=== PATIENT | male | born 1960 | race African-American/Black ===

== ENCOUNTER 2024-07-10 23:21 | Observation (INO) | payer OTHER ==
[2024-07-11] MEDS ORDERED: CEFTRIAXONE 2 GM-D5W BAG 2 GM/50 ML BAG IVPB ONE (00:16)
[2024-07-11 00:26] LABS: ABSOLUTE IMMATURE GRANULOCYTES 0.05 x10^3/uL (0.0-0.031); BASOPHILS # 0.05 x10^3/uL (0.01-0.08); EOSINOPHIL % 0.8 % (0.8-7.0); EOSINOPHILS # 0.09 x10^3/uL (0.04-0.54); HEMOGLOBIN 11.7 g/dL (13.7-17.5); MCHC 31.6 g/dl (32.3-36.5); MEAN CELL VOLUME 94.9 fl (79.0-92.2); MEAN PLT VOLUME 10.5 fl (9.4-12.4); MONOCYTE # 1.47 x10^3/uL (0.30-0.82); MONOCYTE % 12.6 % (5.3-12.2); PLATELET COUNT 286 x10^3/uL (163-337); RDW 11.2 % (12.2-16.4)
[2024-07-11] MEDS: CEFTRIAXONE 2 GM-D5W BAG 2 GM/50 ML BAG IVPB ONE (00:27)
[2024-07-11 00:29] LABS: EPI CELLS 33 /uL (0-25.1); HYALINE CASTS 504 /uL (0-3.1); PH,URINE 5.5 (5.0-8.0); URINE APPEARANCE TURBID; URINE BILIRUBIN 1+ (NEGATIVE); URINE COLOR ORANGE; URINE GLUCOSE (UA) NEGATIVE (NEGATIVE); URINE KETONE NEGATIVE (NEGATIVE); URINE LEUK ESTERASE 3+ (NEGATIVE); URINE NITRITE POSITIVE (NEGATIVE); URINE PROTEIN 4+ (NEGATIVE); URINE RBC 3722 /uL (0-23.9); URINE WBC 26753 /uL (0-25.8)
[2024-07-11 00:58] LABS: BLOOD UREA NITROGEN 12.2 mg/dL (7-18); CALCIUM 9.3 mg/dL (8.5-10.1)
[2024-07-11 00:59] LABS: ALBUMIN 3.9 g/dl (3.4-5.0)
[2024-07-11 01:02] LABS: CREATININE 1.2 mg/dL (0.55-1.3)
[2024-07-11 01:03] LABS: BILIRUBIN,TOTAL 1.2 mg/dL (0.2-1); TOT PROT 7.8 g/dl (6.4-8.2)
[2024-07-11] MEDS ORDERED: KETOROLAC TROMETHAMINE 15 MG/ML VIAL ONE (01:09)
[2024-07-11] MEDS: KETOROLAC TROMETHAMINE 15 MG/ML VIAL IVPUSH ONE (01:10)
[2024-07-11] MEDS: SODIUM CHLORIDE 1,000 ML IV STA ×2 (02:28→02:29)
[2024-07-11] MEDS: SODIUM CHLORIDE 1,000 ML IV SCH (02:37)
[2024-07-11 02:59] LABS: BILIRUBIN,DIRECT 0.3 mg/dL (0.0-0.2)
[2024-07-11 04:03] LABS: URINE BACTERIA 507.7 /uL (0-1359); URINE CRYSTALS NONE SEEN /hpf
[2024-07-11] MEDS ORDERED: HEPARIN NA (PORCINE) 5,000 UNITS/ML 1ML VIAL SQ SCH (06:00)
[2024-07-11 06:03] VITALS: RESP 18
[2024-07-11 06:06] VITALS: BMI 21.7
[2024-07-11] MEDS: ENOXAPARIN NA (PORCINE) 40 MG/0.4 ML DISP.SYRIN SQ SCH (09:54)
[2024-07-11] MEDS: CEFTRIAXONE 1 G/50 ML PREMIX 50 ML IVPB SCH (09:54)
[2024-07-11] MEDS ORDERED: CEFTRIAXONE 1,000 MG in DEXTROSE 5%-WATER - 50 ML IVPB SCH (10:00)
[2024-07-11] MEDS: DOXYCYCLINE INJECTION 100 MG in DEXTROSE 5%-WATER 100 ML IVPB SCH (10:43)
[2024-07-11 12:05] LABS: ABSOLUTE IMMATURE GRANULOCYTES 0.03 x10^3/uL (0.0-0.031); BASOPHILS # 0.03 x10^3/uL (0.01-0.08); EOSINOPHIL % 2.5 % (0.8-7.0); EOSINOPHILS # 0.19 x10^3/uL (0.04-0.54); HEMATOCRIT 34.3 % (40.1-51.0); HEMOGLOBIN 10.8 g/dL (13.7-17.5); MCHC 31.5 g/dl (32.3-36.5); MEAN CELL VOLUME 96.3 fl (79.0-92.2); MEAN PLT VOLUME 10.5 fl (9.4-12.4); MONOCYTE # 0.86 x10^3/uL (0.30-0.82); MONOCYTE % 11.4 % (5.3-12.2); PLATELET COUNT 251 x10^3/uL (163-337); RDW 11.1 % (12.2-16.4)
[2024-07-11 13:31] LABS: HCV DIAGNOSTIC IN-HOUSE W/RFLX NON-REACTIVE (NONREACTIVE); HIV INTERPRETATION NEGATIVE (NEGATIVE)
[2024-07-11] MEDS: ACETAMINOPHEN 1000 MG/100 ML BAG IVPB PRN (15:28)
[2024-07-12 08:18] LABS: HEMATOCRIT 36.9 % (40.1-51.0); HEMOGLOBIN 11.7 g/dL (13.7-17.5); MCHC 31.7 g/dl (32.3-36.5); MEAN CELL VOLUME 95.1 fl (79.0-92.2); MEAN PLT VOLUME 10.1 fl (9.4-12.4); PLATELET COUNT 285 x10^3/uL (163-337); RDW 11.1 % (12.2-16.4)
[2024-07-12 08:46] LABS: BLOOD UREA NITROGEN 8.3 mg/dL (7-18); CALCIUM 8.6 mg/dL (8.5-10.1); MAGNESIUM 2.2 mg/dL (1.8-2.4)
[2024-07-12 08:49] LABS: PHOSPHOROUS 3.2 mg/dL (2.5-4.9)
[2024-07-12 08:50] LABS: BILIRUBIN,TOTAL 0.8 mg/dL (0.2-1); TOT PROT 6.7 g/dl (6.4-8.2)
[2024-07-12] MEDS: ACETAMINOPHEN 1000 MG/100 ML BAG IVPB PRN (16:17)
[2024-07-13 08:09] VITALS: BP 136/91; PULSE 78; TEMP 99
[2024-07-13 08:12] LABS: HEMATOCRIT 37.1 % (40.1-51.0); HEMOGLOBIN 11.7 g/dL (13.7-17.5); MCHC 31.5 g/dl (32.3-36.5); MEAN CELL VOLUME 94.9 fl (79.0-92.2); MEAN PLT VOLUME 9.9 fl (9.4-12.4); PLATELET COUNT 367 x10^3/uL (163-337); RDW 11.2 % (12.2-16.4)
[2024-07-13 08:39] LABS: POTASSIUM 4.3 mmol/L (3.5-5.1)
[2024-07-13 08:51] LABS: CALCIUM 8.9 mg/dL (8.5-10.1)
[2024-07-13 08:52] LABS: BLOOD UREA NITROGEN 8.9 mg/dL (7-18); MAGNESIUM 2.3 mg/dL (1.8-2.4)
[2024-07-13 08:55] LABS: CREATININE 1.1 mg/dL (0.55-1.3)
[2024-07-13 08:56] LABS: BILIRUBIN,TOTAL 0.7 mg/dL (0.2-1); TOT PROT 6.9 g/dl (6.4-8.2)
== END 2024-07-13 12:55 | disposition home or self-care (01) ==
LOC: JER 23:21 → JERBED 07-11 02:28 → J6S 07-11 04:56
PROVIDERS: ADMIT Internal Medicine; ATTEND Internal Medicine
PROC: 3E03329 Introduction of Other Anti-infective into Peripheral Vein, Percutaneous Approach (ICD-10-PCS; principal; 2024-07-11)
PROC: 3E033NZ Introduction of Analgesics, Hypnotics, Sedatives into Peripheral Vein, Percutaneous Approach (ICD-10-PCS; 2024-07-11)
PROC: 3E023GC Introduction of Other Therapeutic Substance into Muscle, Percutaneous Approach (ICD-10-PCS; 2024-07-11)
PROC: 3E0333Z Introduction of Anti-inflammatory into Peripheral Vein, Percutaneous Approach (ICD-10-PCS; 2024-07-11)
DX: N39.0 Urinary tract infection, site not specified (principal); A41.89 Other specified sepsis; N45.3 Epididymo-orchitis; I10 Essential (primary) hypertension; N40.0 Benign prostatic hyperplasia without lower urinary tract symptoms; E80.6 Other disorders of bilirubin metabolism
CPT/HCPCS: 36415; 76870-TC; 80053; 81003; 82248; 83735; 84100; 85025; 85027; 86803; 87040; 87086; 87186; 87389; 93005; 93010; 96361; 96365; 96366; 96367; 96372; 96375; 96376; 99285-25; G0378; J0131